=== PATIENT | female | born 1985 | race Two or more races ===

== ENCOUNTER 2024-06-14 10:15 | Inpatient (IN) | payer OTHER ==
[~2024-06-14] VITALS: Ht 162.6 cm; Wt 70.3 kg
[2024-06-14] MEDS ORDERED: SYNTHROID50 MCG PO (12:42)
[2024-06-14] MEDS ORDERED: OSTERA TABLET1 EACH PO (12:43)
[2024-06-20] MEDS ORDERED: CEFAZOLIN SODIUM 1,000 MG VIAL ONE (09:50)
[2024-06-20] MEDS ORDERED: PROMETHAZINE HCL 25 MG/ML AMPUL IV SCH (12:28)
[2024-06-20] MEDS ORDERED: MEPERIDINE HCL/PF 50 MG/ML VIAL IV SCH (12:28)
[2024-06-20] MEDS ORDERED: PROMETHAZINE HCL 25 MG/ML AMPUL ONE (15:44)
[2024-06-20 16:03] LABS: HEMATOCRIT 31.3 % (36.0-45.00); HEMOGLOBIN 10.5 g/dL (12.0-15.00); MEAN CELL VOLUME 93.7 fL (80.00-100.00); MEAN CORPUSCULAR HEMOGLOBIN 31.4 pg (27.00-32.0); MEAN CORPUSCULAR HGB CONC 33.5 g/dl (32.0-36.0); PLATELET COUNT 198 K/uL (150-450); RED BLOOD COUNT 3.34 M/uL (4.00-6.00); RED CELL DISTRIBUTION WIDTH 13.4 % (11.5-14.5)
[2024-06-20] MEDS ORDERED: KETOROLAC TROMETHAMINE 60 MG VIAL IM NR (16:30)
[2024-06-21] MEDS ORDERED: IBUprofen 800 MG TABLET PO SCH (02:00)
[2024-06-21] MEDS ORDERED: GABAPENTIN 300 MG CAPSULE PO SCH (05:00)
[2024-06-21] MEDS ORDERED: LEVOTHYROXINE SODIUM 50 MCG TABLET PO SCH (06:00)
[2024-06-21] MEDS ORDERED: POLYETHYLENE GLYCOL 3350 17 GM BLIST.PACK PO SCH (09:00)
[2024-06-21] MEDS ORDERED: SIMETHICONE 125 MG CAPSULE PO SCH (09:00)
[2024-06-22] MEDS ORDERED: GABAPENTIN300 MG PO (07:13)
[2024-06-22] MEDS ORDERED: POLY119PG PO (07:14)
[2024-06-22] MEDS ORDERED: SIMETHICONE125 M1 PO (07:14)
[2024-06-22] MEDS ORDERED: IBUPROFEN800 MG PO (07:14)
== END 2024-06-22 09:51 | disposition home or self-care (01) | DRG 743 ==
LOC: OB/GYN 06-20 05:31 → O/R 06-20 05:31 → OB/GYN 06-20 07:00
PROVIDERS: ADMIT Obstetrics & Gynecology; ATTEND Obstetrics & Gynecology
PROC: 0UT70ZZ Resection of Bilateral Fallopian Tubes, Open Approach (ICD-10-PCS; 2024-06-20)
PROC: 0UT90ZZ Resection of Uterus, Open Approach (ICD-10-PCS; principal; 2024-06-20 07:00)
DX: D25.1 Intramural leiomyoma of uterus (principal); D25.0 Submucous leiomyoma of uterus; N72 Inflammatory disease of cervix uteri; Z20.822 Contact with and (suspected) exposure to COVID-19; N93.9 Abnormal uterine and vaginal bleeding, unspecified

== ENCOUNTER 2024-07-01 13:49 | Inpatient (IN) | payer OTHER ==
[~2024-07-01] VITALS: Ht 162.6 cm; Wt 68.0 kg
[~2024-07-01 13:49] MED LIST: GABAPENTIN300 MG PO; IBUPROFEN800 MG PO; OSTERA TABLET1 EACH PO; POLY119PG PO; SIMETHICONE125 M1 PO; SYNTHROID50 MCG PO
[2024-07-01] MEDS ORDERED: 0.9 % SODIUM CHLORIDE 500 ML IV ONE (15:15)
[2024-07-01 15:45] LABS: HEMATOCRIT 30.7 % (36.0-45.00); HEMOGLOBIN 9.9 g/dL (12.0-15.00); MEAN CELL VOLUME 94.1 fL (80.00-100.00); MEAN CORPUSCULAR HEMOGLOBIN 30.5 pg (27.00-32.0); MEAN CORPUSCULAR HGB CONC 32.4 g/dl (32.0-36.0); PLATELET COUNT 325 K/uL (150-450); RED BLOOD COUNT 3.26 M/uL (4.00-6.00); RED CELL DISTRIBUTION WIDTH 13.2 % (11.5-14.5)
[2024-07-01 16:02] LABS: ALBUMIN 3.4 gm/dL (3.4-5.0); BILIRUBIN TOTAL 0.37 mg/dL (0.3-1.2); CALCIUM 8.5 mg/dL (8.5-10.1); CREATININE SERUM 0.82 mg/dL (0.55-1.02); GFR 77.61; GLOBULINA 4.3 G/DL (2.4-3.5); POTASSIUM 4.3 mEq/L (3.5-5.1); TOTAL PROTEIN 7.7 gm/dL (6.4-8.2)
[2024-07-01 16:04] LABS: INR 1.1; PARTIAL THROMBOPLASTIN TIME 33.1 SECONDS (22.0-34.0); PROTHROMBIN TIME 11.9 SECONDS (9.0-11.5)
[2024-07-01 17:08] LABS: PH,URINE 6.5 (5.0-8.0); URINE APPEARANCE Clear; URINE BILIRRUBIN Negative (NEGATIVE); URINE BLOOD Moderate; URINE COLOR Yellow; URINE GLUCOSE Negative (NEGATIVE); URINE KETONE Negative (NEGATIVE); URINE LEUKOCYTE Negative; URINE NITRATE Negative; URINE PROTEIN Negative (NEGATIVE)
[2024-07-01 17:12] LABS: URINE BACTERIA 1855.6 uL (0.0-1933); URINE EPITHELIAL CELLS 21.9 uL (0.0-38.8); URINE RBC 91.4 uL (0.0-20.8); URINE WBC 6.8 uL (0.0-23.2)
[2024-07-01 17:45] LABS: URINE MUCUS MODERATE
[2024-07-01] MEDS ORDERED: CEFOXITIN SODIUM 2,000 MG in DEXTROSE 5 % IN WATER 100 ML IV SCH (19:19)
[2024-07-02 07:44] VITALS: O2SAT 100
[2024-07-02 10:42] LABS: HEMATOCRIT 30.2 % (36.0-45.00); MEAN CORPUSCULAR HEMOGLOBIN 31.2 pg (27.00-32.0); MEAN CORPUSCULAR HGB CONC 33.2 g/dl (32.0-36.0); PLATELET COUNT 320 K/uL (150-450); RED BLOOD COUNT 3.21 M/uL (4.00-6.00); RED CELL DISTRIBUTION WIDTH 13.6 % (11.5-14.5)
[2024-07-02 10:48] VITALS: BP 94/60
[2024-07-02 11:24] LABS: INR 1.07; PARTIAL THROMBOPLASTIN TIME 36.6 SECONDS (22.0-34.0); PROTHROMBIN TIME 11.6 SECONDS (9.0-11.5)
[2024-07-02] MEDS ORDERED: ENOXAPARIN SODIUM 80 MG/0.8 ML SYRINGE SUBCUTANEO SCH (13:19)
[2024-07-02] MEDS ORDERED: Cyanocobalamin/Mecobalamin 1 TAB.SL SL SCH (13:24)
[2024-07-02] MEDS ORDERED: SOD FERRIC GLUC COMPLX/SUCROSE 62.5 MG in 0.9 % SODIUM CHLORIDE 50 ML IV SCH (13:24)
[2024-07-02] MEDS ORDERED: FAMOTIDINE/PF 20 MG/2 ML VIAL IV SCH (13:26)
[2024-07-02 17:00] VITALS: BP 94/58
[2024-07-03 01:59] VITALS: BP 100/60
[2024-07-03] MEDS ORDERED: SYNTHROID 50 MCG (MARCA ORIGINAL) PO SCH (06:00)
[2024-07-03 08:30] LABS: HEMATOCRIT 29.4 % (36.0-45.00); HEMOGLOBIN 9.7 g/dL (12.0-15.00); MEAN CORPUSCULAR HEMOGLOBIN 31.1 pg (27.00-32.0); MEAN CORPUSCULAR HGB CONC 33.1 g/dl (32.0-36.0); PLATELET COUNT 337 K/uL (150-450); RED BLOOD COUNT 3.12 M/uL (4.00-6.00); RED CELL DISTRIBUTION WIDTH 13.4 % (11.5-14.5)
[2024-07-03 09:03] LABS: CALCIUM 8.7 mg/dL (8.5-10.1); CREATININE SERUM 0.77 mg/dL (0.55-1.02); GFR 83.45; MAGNESIUM 2.3 mg/dL (1.8-2.4); PHOSPHOROUS 3.5 mg/dL (2.5-4.9); POTASSIUM 4.35 mEq/L (3.5-5.1); TSH 0.825 uIU/mL (0.358-3.74)
[2024-07-03] MEDS ORDERED: CLINDAMYCIN PHOSPHATE 900 MG in 0.9 % SODIUM CHLORIDE 100 ML IV SCH (09:46)
[2024-07-03 10:00] VITALS: BP 94/50
[2024-07-03 16:48] VITALS: BP 86/52
[2024-07-04 02:18] VITALS: BP 88/51
[2024-07-04 07:05] LABS: HEMATOCRIT 29.6 % (36.0-45.00); HEMOGLOBIN 9.8 g/dL (12.0-15.00); MEAN CELL VOLUME 94.3 fL (80.00-100.00); MEAN CORPUSCULAR HEMOGLOBIN 31.3 pg (27.00-32.0); MEAN CORPUSCULAR HGB CONC 33.2 g/dl (32.0-36.0); PLATELET COUNT 319 K/uL (150-450); RED BLOOD COUNT 3.14 M/uL (4.00-6.00); RED CELL DISTRIBUTION WIDTH 13.4 % (11.5-14.5)
[2024-07-04 08:00] VITALS: BP 83/50
[2024-07-04] MEDS ORDERED: CLINDAMYCIN PHOSPHATE 150 MG/ML (900mg) ONE (16:41)
[2024-07-04 16:57] VITALS: BP 91/53
[2024-07-04 21:36] VITALS: BP 91/56
[2024-07-05 00:13] VITALS: BP 80/50
[2024-07-05 08:42] VITALS: BP 90/52
[2024-07-05 10:25] LABS: FERRITIN 274.6 NG/ML (8-252)
[2024-07-05 11:19] LABS: FOLIC ACID 15.76 ng/ml (4.78-20)
[2024-07-05 12:00] VITALS: BP 87/49
[2024-07-05] MEDS ORDERED: MIDAZOLAM HCL 2 MG/2 ML VIAL IV PUSH ONE (17:15)
[2024-07-05] MEDS ORDERED: fentaNYL CITRATE 50 MCG/ML AMPUL IV PUSH ONE (17:15)
[2024-07-05 17:36] VITALS: BP 94/60
[2024-07-05] MEDS ORDERED: ACETAMINOPHEN 500 MG GEL..CAP PO PRN (20:15)
[2024-07-05 21:11] VITALS: BP 91/54
[2024-07-06 00:24] VITALS: BP 80/50
[2024-07-06 04:30] VITALS: BP 97/58
[2024-07-06 09:20] VITALS: BP 98/50
[2024-07-06 12:48] VITALS: BP 99/64
[2024-07-06] MEDS ORDERED: VITAMIN B COMPLEX 1 EACH PO SCH (17:00)
[2024-07-06 18:14] VITALS: BP 93/58
[2024-07-07] VITALS: BP 92/60
[2024-07-07 04:30] VITALS: BP 85/52
[2024-07-07 06:53] LABS: HEMATOCRIT 29.9 % (36.0-45.00); HEMOGLOBIN 10.2 g/dL (12.0-15.00); MEAN CELL VOLUME 92.3 fL (80.00-100.00); MEAN CORPUSCULAR HEMOGLOBIN 31.6 pg (27.00-32.0); MEAN CORPUSCULAR HGB CONC 34.2 g/dl (32.0-36.0); PLATELET COUNT 277 K/uL (150-450); RED BLOOD COUNT 3.24 M/uL (4.00-6.00); RED CELL DISTRIBUTION WIDTH 14.2 % (11.5-14.5)
[2024-07-07 07:24] LABS: ALBUMIN 3.5 gm/dL (3.4-5.0); BILIRUBIN TOTAL 0.5 mg/dL (0.3-1.2); CALCIUM 8.7 mg/dL (8.5-10.1); CREATININE SERUM 0.77 mg/dL (0.55-1.02); GFR 83.45; GLOBULINA 3.5 G/DL (2.4-3.5); POTASSIUM 4.23 mEq/L (3.5-5.1)
[2024-07-07 09:20] VITALS: BP 96/60
[2024-07-07 11:12] LABS: ANTI-THROMBIN III 99 % (75-135); PROTEIN C ACTIVITY 96 % (73-180); Protein s 96 % (60-150); Protein s free 101 % (61-136)
[2024-07-07 16:00] VITALS: BP 85/52
[2024-07-07 17:06] LABS: PROTEIN C ANTIGEN 76 % (60-150)
[2024-07-07 20:49] VITALS: BP 90/55
[2024-07-08] VITALS: BP 90/50
[2024-07-08 08:44] VITALS: BP 95/48
[2024-07-08] MEDS ORDERED: APIXABAN 5 MG TABLET PO SCH (09:00)
[2024-07-08] MEDS ORDERED: CIPROFLOXACIN HCL 500 MG TABLET PO SCH (09:00)
[2024-07-08 13:13] VITALS: BP 96/59
[2024-07-08 17:49] VITALS: BP 99/55
[2024-07-08] MEDS ORDERED: SOD FERRIC GLUC COMPLX/SUCROSE 62.5 MG/5 ML AMPUL IV SCH (18:09)
[2024-07-09 01:00] VITALS: BP 82/53
[2024-07-09] MEDS ORDERED: CIPROFLOXACIN500 MG PO (07:28)
[2024-07-09] MEDS ORDERED: ELIQUIS5 MG PO (07:28)
[2024-07-09] MEDS ORDERED: Neurin-Sl Tablet Sl SL (07:29)
[2024-07-09] MEDS ORDERED: B Complex PO (07:29)
[2024-07-09 07:44] VITALS: BP 94/57
== END 2024-07-09 09:12 | disposition home or self-care (01) | DRG 758 ==
LOC: ER 13:50 → OB/GYN 07-02 10:04
PROVIDERS: Internal Medicine; Internal Medicine Geriatric Medicine; Internal Medicine Hematology & Oncology; Nurse Practitioner Family; ADMIT Obstetrics & Gynecology; ATTEND Obstetrics & Gynecology
PROC: 0W9J3ZZ Drainage of Pelvic Cavity, Percutaneous Approach (ICD-10-PCS; principal; 2024-07-05)
DX: N73.8 Other specified female pelvic inflammatory diseases (principal); I82.890 Acute embolism and thrombosis of other specified veins; D64.9 Anemia, unspecified; E55.9 Vitamin D deficiency, unspecified; B95.2 Enterococcus as the cause of diseases classified elsewhere; E03.9 Hypothyroidism, unspecified; Z20.822 Contact with and (suspected) exposure to COVID-19; B96.89 Other specified bacterial agents as the cause of diseases classified elsewhere

== ENCOUNTER 2024-12-13 21:09 | Inpatient (IN) | payer OTHER ==
[~2024-12-13] VITALS: Ht 162.6 cm; Wt 72.6 kg
[~2024-12-13 21:09] MED LIST changes: +B Complex PO; +CIPROFLOXACIN500 MG PO; +ELIQUIS5 MG PO; +Neurin-Sl Tablet Sl SL
[2024-12-13] MEDS ORDERED: SYNTHROID50 MCG PO (21:30)
[2024-12-13] MEDS ORDERED: ST. JOSEPH ASPI81 M2 PO (21:31)
[2024-12-13] MEDS ORDERED: ONDANSETRON HCL 2 MG/ML VIAL IV ONE (23:15)
[2024-12-13] MEDS ORDERED: KETOROLAC TROMETHAMINE 30 MG VIAL IU ONE (23:15)
[2024-12-13] MEDS ORDERED: PIPERACILLIN/TAZOBACTAM SODIUM 3.375 GM VIAL IV ONE ×2 (23:15→23:57)
[2024-12-13] MEDS ORDERED: FAMOtidine 10 MG/ML (4ML VIAL) IV ONE (23:15)
[2024-12-13] MEDS ORDERED: 0.9 % SODIUM CHLORIDE 1,000 ML IV ONE (23:15)
[2024-12-13] MEDS ORDERED: KETOROLAC TROMETHAMINE 30 MG VIAL ONE (23:56)
[2024-12-13] MEDS ORDERED: ONDANSETRON HCL 2 MG/ML VIAL ONE (23:56)
[2024-12-13] MEDS ORDERED: FAMOTIDINE/PF 20 MG/2 ML VIAL ONE (23:57)
[2024-12-13 23:59] LABS: HEMOGLOBIN 12.6 g/dL (12.0-15.00); MEAN CELL VOLUME 94.2 fL (80.00-100.00); MEAN CORPUSCULAR HEMOGLOBIN 31.2 pg (27.00-32.0); MEAN CORPUSCULAR HGB CONC 33.1 g/dl (32.0-36.0); PLATELET COUNT 209 K/uL (150-450); RED BLOOD COUNT 4.04 M/uL (4.00-6.00); RED CELL DISTRIBUTION WIDTH 13.9 % (11.5-14.5)
[2024-12-14 00:19] LABS: ALBUMIN 3.7 gm/dL (3.4-5.0); ALKALINE PHOSPHATASE 60 U/L (50-136); ALT/SGPT 17 U/L (12-78); ANION GAP 4 (10.0-20.0); AST/SGOT 7 U/L (15-37); BILIRUBIN TOTAL 0.31 mg/dL (0.3-1.2); BLOOD UREA NITROGEN 14 mg/dL (7-18); BUN CREA RATIO 20 (7.0-25.0); CALCIUM 8.9 mg/dL (8.5-10.1); CARBON DIOXIDE 33 mEq/L (21-32); CHLORIDE 109 mmol/L (98-107); GFR 93.16; GLOBULINA 3.9 G/DL (2.4-3.5); GLUCOSE FASTING 96 mg/dL (65-100); OSMOLALITY SERUM 283 MOSM/KG (275-295); POTASSIUM 3.87 mEq/L (3.5-5.1); SODIUM 142 mmol/L (136-145); TOTAL PROTEIN 7.6 gm/dL (6.4-8.2)
[2024-12-14 00:42] LABS: HCG QUANTITATIVE < 1 mUI/mL (1-3)
[2024-12-14 01:37] LABS: PH,URINE 6.5 (5.0-8.0); URINE APPEARANCE Clear; URINE BILIRRUBIN Negative (NEGATIVE); URINE BLOOD Trace; URINE COLOR Yellow; URINE GLUCOSE Negative (NEGATIVE); URINE KETONE Negative (NEGATIVE); URINE LEUKOCYTE Negative; URINE NITRATE Negative; URINE PROTEIN Negative (NEGATIVE)
[2024-12-14 01:39] LABS: PROTHROMBIN TIME 10.9 SECONDS (9.0-11.5)
[2024-12-14 01:41] LABS: URINE BACTERIA 3267.6 uL (0.0-1933); URINE EPITHELIAL CELLS 23.2 uL (0.0-38.8); URINE RBC 31.5 uL (0.0-20.8); URINE WBC 7.4 uL (0.0-23.2)
[2024-12-14 01:42] LABS: PARTIAL THROMBOPLASTIN TIME 32.4 SECONDS (22.0-34.0)
[2024-12-14] MEDS ORDERED: FAMOTIDINE/PF 20 MG/2 ML VIAL IV PUSH STA (05:02)
[2024-12-14] MEDS ORDERED: CEFTRIAXONE SODIUM 1,000 MG VIAL IV STA (05:02)
[2024-12-14] MEDS ORDERED: FAMOTIDINE/PF 20 MG/2 ML VIAL ONE ×3 (05:23→23:26)
[2024-12-14] MEDS ORDERED: CEFTRIAXONE SODIUM 1,000 MG VIAL ONE (05:23)
[2024-12-14] MEDS ORDERED: MEPERIDINE HCL/PF 50 MG/ML VIAL IM STA (08:08)
[2024-12-14] MEDS ORDERED: 0.9 % SODIUM CHLORIDE 1,000 ML IV SCH (10:30)
[2024-12-14] MEDS ORDERED: MEPERIDINE HCL/PF 50 MG/ML VIAL IM PRN (10:45)
[2024-12-14] MEDS ORDERED: FAMOTIDINE/PF 20 MG in 0.9 % SODIUM CHLORIDE 8 ML IV PUSH SCH ×2 (11:00→21:00)
[2024-12-14] MEDS ORDERED: PIPERACILLIN/TAZOBACTAM SODIUM 3.375 GM in 0.9 % SODIUM CHLORIDE 100 ML IV SCH (12:00)
[2024-12-14] MEDS ORDERED: PIPERACILLIN/TAZOBACTAM SODIUM 3.375 GM VIAL IV ONE (12:55)
[2024-12-14] MEDS ORDERED: MORPHINE SULFATE 4 MG/ML VIAL IV ONE (23:30)
[2024-12-15] MEDS ORDERED: MORPHINE SULFATE 4 MG/ML CARTRIDGE IV PRN
[2024-12-15] MEDS ORDERED: PIPERACILLIN/TAZOBACTAM SODIUM 3.375 GM in 0.9 % SODIUM CHLORIDE 100 ML IV SCH (01:00)
[2024-12-15] MEDS ORDERED: PIPERACILLIN/TAZOBACTAM SODIUM 3.375 GM VIAL IV ONE (01:29)
[2024-12-15 07:02] LABS: HEMATOCRIT 36.5 % (36.0-45.00); HEMOGLOBIN 12.1 g/dL (12.0-15.00); MEAN CELL VOLUME 94.2 fL (80.00-100.00); MEAN CORPUSCULAR HEMOGLOBIN 31.3 pg (27.00-32.0); MEAN CORPUSCULAR HGB CONC 33.2 g/dl (32.0-36.0); PLATELET COUNT 214 K/uL (150-450); RED BLOOD COUNT 3.88 M/uL (4.00-6.00); RED CELL DISTRIBUTION WIDTH 13.8 % (11.5-14.5)
[2024-12-15] MEDS ORDERED: MORPHINE SULFATE 4 MG/ML VIAL IV ONE (10:00)
[2024-12-15] MEDS ORDERED: BACTRIM DS TAB1 EACH PO (12:16)
[2024-12-15 14:01] VITALS: BP 119/55; O2SAT 97
[2024-12-15 18:12] VITALS: BP 123/68; O2SAT 100
== END 2024-12-15 15:00 | disposition home or self-care (01) | DRG 418 ==
LOC: ER 21:11 → EDLOC 12-14 11:10 → SEC-K 12-14 11:10 → SURG 12-15 11:43
PROVIDERS: General Practice; Specialist; ADMIT Internal Medicine; ATTEND Internal Medicine
PROC: BF13YZZ Fluoroscopy of Gallbladder and Bile Ducts using Other Contrast (ICD-10-PCS; 2024-12-14)
PROC: 0FT44ZZ Resection of Gallbladder, Percutaneous Endoscopic Approach (ICD-10-PCS; principal; 2024-12-14 13:45)
DX: K80.10 Calculus of gallbladder with chronic cholecystitis without obstruction (principal); K90.49 Malabsorption due to intolerance, not elsewhere classified; R10.9 Unspecified abdominal pain

== ENCOUNTER 2025-02-07 06:41 | Outpatient (CLI) | payer OTHER ==
[~2025-02-07 06:41] MED LIST changes: +BACTRIM DS TAB1 EACH PO; +ST. JOSEPH ASPI81 M2 PO
[2025-02-07 08:16] LABS: HEMATOCRIT 40.1 % (36.0-45.00); HEMOGLOBIN 13.3 g/dL (12.0-15.00); MEAN CELL VOLUME 95.1 fL (80.00-100.00); MEAN CORPUSCULAR HEMOGLOBIN 31.7 pg (27.00-32.0); MEAN CORPUSCULAR HGB CONC 33.3 g/dl (32.0-36.0); PLATELET COUNT 219 K/uL (150-450); RED BLOOD COUNT 4.21 M/uL (4.00-6.00)
[2025-02-07 09:47] LABS: ALBUMIN 3.9 gm/dL (3.4-5.0); BILIRUBIN TOTAL 1.02 mg/dL (0.3-1.2); CREATININE SERUM 0.77 mg/dL (0.55-1.02); FERRITIN 84.6 NG/ML (8-252); GFR 83.03; GLOBULINA 3.4 G/DL (2.4-3.5); TOTAL PROTEIN 7.3 gm/dL (6.4-8.2)
[2025-02-07 13:12] LABS: FOLIC ACID 14.75 ng/ml (4.78-20)
[2025-02-09 13:06] LABS: PARIETAL CELL ANTIBODIES 1.3 Units (0.0-20.0); dRVVT 45.4 sec (0.0-47.0); interp Comment: (.); ptt-la 36.8 sec (0.0-43.5)
[2025-02-09 17:06] LABS: INTRINSIC FACTOR BLOCKING AB 0.9 AU/mL (0.0-1.1)
== END 2025-02-07 07:00 | disposition home or self-care (01) ==
LOC: LAB 06:41
PROVIDERS: ATTEND Internal Medicine Hematology & Oncology
DX: D50.8 Other iron deficiency anemias (principal); I10 Essential (primary) hypertension; E72.11 Homocystinuria; E72.12 Methylenetetrahydrofolate reductase deficiency; E55.9 Vitamin D deficiency, unspecified; E03.8 Other specified hypothyroidism; E06.3 Autoimmune thyroiditis; D51.0 Vitamin B12 deficiency anemia due to intrinsic factor deficiency; D51.1 Vitamin B12 deficiency anemia due to selective vitamin B12 malabsorption with proteinuria; D68.312 Antiphospholipid antibody with hemorrhagic disorder; R74.02 Elevation of levels of lactic acid dehydrogenase [LDH]; K76.89 Other specified diseases of liver

== ENCOUNTER 2025-02-07 11:09 | Outpatient (CLI) | payer OTHER | END 2025-02-07 11:17 | disposition home or self-care (01) | LOC: TOM 11:09 | PROVIDERS: ATTEND Internal Medicine Hematology & Oncology | DX: D68.61 Antiphospholipid syndrome (principal); E72.11 Homocystinuria; E72.12 Methylenetetrahydrofolate reductase deficiency; E55.9 Vitamin D deficiency, unspecified; E03.8 Other specified hypothyroidism; I82.890 Acute embolism and thrombosis of other specified veins ==

== ENCOUNTER → 2025-03-31 07:20 | Outpatient (CLI) | payer OTHER | END | disposition home or self-care (01) | LOC: NUCLEAR 07:20 | PROVIDERS: ATTEND Internal Medicine Hematology & Oncology | DX: D68.61 Antiphospholipid syndrome (principal); I87.2 Venous insufficiency (chronic) (peripheral) ==